=== PATIENT | female | born 1945 | race Caucasian/White ===

== ENCOUNTER → 2016-05-26 | Outpatient (CLI) | payer MEDICARE | END | disposition home or self-care (01) | LOC: RAD.S 12:33 | DX: Z12.31 Encounter for screening mammogram for malignant neoplasm of breast (principal); R92.1 Mammographic calcification found on diagnostic imaging of breast ==

== ENCOUNTER → 2016-07-12 | Outpatient (CLI) | payer MEDICARE | END | disposition home or self-care (01) | LOC: RAD.S 13:48 | DX: G20 Parkinson's disease (principal); E87.8 Other disorders of electrolyte and fluid balance, not elsewhere classified ==

== ENCOUNTER 2016-08-26 11:35 | Day surgery (SDC) | payer MEDICARE ==
[~2016-08-26] VITALS: Ht 157.5 cm; Wt 84.7 kg
--- NOTE | ~2016-08-26 | CATH ---
Cardiac Diagnostic Report Demographics Patient Name HORTENSIA Sierra Gender Female Date of 1945 Age 71 year(s) Patient Number [id number] Date of Study 08/26/2016 Visit Number [id number] Room Number Corporate ID Ht 154.94 cm Wt 88.45 kg Accession Number [id number] BSA 1.87 m kg/m Referring Noy Doan Primary Physician Physician MD Julissa Nath Performing Noy Doan Secondary Physician Physician Diagnostic King Glenroy Patel MD Assisting Physician Physician Noy Doan MD Interventional Physician Artificial Leather Calender Operator Physician Findings and Conclusions Diagnostic Findings and Conclusion 1. Minimal, non-obstructive CAD. 2. EDP 8mmHg Diagnostic Recommendations 1. Ongoing risk factor modification Procedure Description The patient was brought to the diagnostic cardiac catheterization-EP laboratory in the fasting, non-sedated state. Informed consent was obtained in the written and verbal form after the risks and benefits were explained. The patient had no further questions and agreed to proceed. The planned puncture-incision site(s) were shaved and prepped with ChloraPrep and draped in the usual sterile manner. Conscious sedation, supplemental oxygen, and pain control medications were delivered by a registered nurse under physician guidance. Surface ECG rhythm, blood pressure measurement, and pulse oximetry were monitored throughout the procedure. Arterial access. The access site was infiltrated with lidocaine. The vessel was entered with the Seldinger technique. A sheath was advanced into the vessel and used for catheter placement. Selective left coronary angiography. A catheter was advanced into the left coronary vessel ostium under Fluoroscopic guidance. Contrast was injected by hand. Images were obtained in multiple projections. Selective right coronary angiography. A catheter was advanced into the right coronary vessel ostium under fluoroscopic guidance. Contrast was injected by hand. Images were obtained in multiple projections. Left heart catheterization. A catheter was advanced across the aortic valve to the left ventricle under fluoroscopic guidance. Resting hemodynamics were obtained. Arterial artery hemostasis was achieved. The patient was transferred to a regular nursing floor via cart accompanied by a nurse. The patient left the laboratory in stable condition. Diagnostic Cath Status: Elective Procedure Procedure Type Diagnostic procedure:Angiography:, Coronary Angios w/[facility] Indications: Chest pain, Abnormal nuclear perfusion study, Hyperlipidemia, Hypertension and Family history of coronary artery disease. The procedure was explained in detail to the patient. Risks, complications and alternative treatments were reviewed. Written consent was obtained. Medications Reviewed with Patient prior to Procedure. Complications: No Complication. Angiographic Findings Dominance: Right Cardiac Arteries and Lesion Findings LMCA: Normal (0% Stenosis). LAD: Abnormal. Lesion on Mid LAD: 30% stenosis . LCx: Normal (0% Stenosis). RCA: Normal (0% Stenosis). Coronary Tree Procedure Data Procedure Date Date: 08/26/2016Start: 01:25 PM Entry Locations - Percutaneous access was performed through the Right Radial artery (Primary location). A 6 Fr sheath was inserted. Hemostasis was successfully obtained using a TR band. Procedure Medications Order and Administration + + +-------+--------+ !Time !Medication !Dosage !Route ! + + +-------+--------+ !08/26/2016 !Versed !1 mg !I.V. ! !01:21 PM ! ! ! ! + + +-------+--------+ 08/26/2016 !Fentanyl !25 mcg !I.V. ! !01:22 PM ! ! ! ! + + +-------+--------+ 08/26/2016 !Sodium Chloride !10 ml !I.V. ! !01:22 PM ! ! ! ! + + +-------+--------+ !08/26/2016 !Versed !1 mg !I.V. ! !01:30 PM ! ! ! ! + + +-------+--------+ !08/26/2016 !Fentanyl !25 mcg !I.V. ! !01:30 PM ! ! ! ! + + +-------+--------+ !08/26/2016 !Versed !1 mg !I.V. ! !01:43 PM ! ! ! ! + + +-------+--------+ !08/26/2016 !Fentanyl !50 mcg !I.V. ! !01:43 PM ! ! ! ! + + +-------+--------+ !08/26/2016 !Oxygen !4 l/min!NC ! !01:48 PM ! ! ! ! + + +-------+--------+ !08/26/2016 !SF Radial Cocktail: 200mcg Nitro, 2.5 mg ! !I.A. ! !02:01 PM !Verapamil, 5000u Heparin ! ! ! + + +-------+--------+ Devices Used - ACATH 6F FR4 CATHETER 100CMwas used for:Right coronary angiography. - ACATH 6FR FL3.5 CATHETER 100CMwas used for:Left coronary angiography. Contrast Material - Isovue 99655 ml Fluoroscopy Time: Diagnostic: 3:24 minutes. Total: 3:24 minutes. Fluoroscopy Dose: Diagnostic: 361 mGy. Total: 361 mGy. Estimated Blood Loss: 9 ml. Medical History Performed Procedures and Imaging Results - Stress testing with SPECT MPIwas performed on 08/13/2016. Results were: Positive. Risk/Extent of ischemia was: Low risk. Allergies - Other:(Hydrochlorthiazide). - Other:(Hydrochlorothiazide). Risk Factors The patient risk factors include:hypertension, family history of premature CAD, last creatinine: 0.6 mg/dl, creatinine clearance: 123.56 ml/min and dyslipidemia. Admission Data Admission Date: 08/26/2016 Admission Time: 11:35 AM Insurance Payors: Medicare. Clinical Evaluation Leading to Procedure - The patient's CAD presentation was assessed as: Stable angina. - The patient's anginal syndrome during the past two weeks was assessed as: Class II according to the [place] Cardiovascular [employer] Classification System (CCS). Anti-anginal medications were prescribed during the past two weeks. The medication is: Beta Blockers. Hemodynamics Condition: Rest O2 Consumption: Estimated: 164.05Heart Rate: 58 bpm Pressures (mmHg) +-----+ + !Site !Pressure ! +-----+ + !LV !122/3 ,8 ! +-----+ + !AO !132/69 (97) ! +-----+ + Shunts Oxygen Values O2 Capacity 182.24 O2 Consumption 164.05 Signatures
== END 2016-08-26 17:25 | disposition home or self-care (01) ==
LOC: SSS 11:35
DX: I25.118 Atherosclerotic heart disease of native coronary artery with other forms of angina pectoris (principal); I10 Essential (primary) hypertension; E78.5 Hyperlipidemia, unspecified; G20 Parkinson's disease; Z79.899 Other long term (current) drug therapy; Z79.82 Long term (current) use of aspirin